=== PATIENT | female | born 1990 | race Native Hawaiian/Other Pacific Islander ===

== ENCOUNTER 2017-02-09 17:07 | Emergency (ER) | payer OTHER ==
[~2017-02-09] VITALS: Ht 162.6 cm; Wt 81.6 kg
[2017-02-09] MEDS ORDERED: INSUINJ20 SC (17:27)
[2017-02-09 17:29] LABS: PLATELET COUNT 312 K/uL (152-353)
[2017-02-09 17:41] LABS: POTASSIUM 3.7 mmol/L (3.6-5.2); SODIUM 140 mmol/L (136-145)
[2017-02-09 20:33] VITALS: BP 138/88; TEMP 98.2
== END 2017-02-09 20:34 | disposition home or self-care (01) ==
LOC: ED 17:07
DX: R10.13 Epigastric pain (principal); T50.995A Adverse effect of other drugs, medicaments and biological substances, initial encounter
CPT/HCPCS: 36415; 80053; 82150; 83690; 85027; 86318; 96374; 99284; J1100; Q9963

== ENCOUNTER 2017-02-10 16:27 | Outpatient (CLI) | payer OTHER ==
[~2017-02-10 16:27] MED LIST: INSUINJ20 SC
== END 2017-02-10 19:08 | disposition home or self-care (01) ==
LOC: US 16:27
DX: R10.11 Right upper quadrant pain (principal); R11.2 Nausea with vomiting, unspecified

== ENCOUNTER 2017-02-18 12:28 | Outpatient (CLI) | payer OTHER | END 2017-02-18 13:30 | disposition home or self-care (01) | LOC: NM 12:28 | DX: R10.11 Right upper quadrant pain (principal); R11.2 Nausea with vomiting, unspecified | CPT/HCPCS: A9537 ==

== ENCOUNTER 2017-03-09 08:16 | Day surgery (SDC) | payer OTHER ==
[2017-03-03 08:29] LABS: PLATELET COUNT 343 K/uL (152-353)
[2017-03-03 08:47] LABS: POTASSIUM 4.1 mmol/L (3.6-5.2); SODIUM 137 mmol/L (136-145)
[~2017-03-09] VITALS: Ht 30.5 cm; Wt 0.5 kg
== END 2017-03-09 12:42 | disposition home or self-care (01) ==
LOC: OR 08:16
PROVIDERS: Student in an Organized Health Care Education/Training Program
PROC: 0FT44ZZ Resection of Gallbladder, Percutaneous Endoscopic Approach (ICD-10-PCS; principal; 2017-03-09)
DX: K81.1 Chronic cholecystitis (principal); R10.11 Right upper quadrant pain
CPT/HCPCS: 36415; 80053; 85027; J0132; J0330; J0690; J1100; J1170; J2001; J2250; J2405; J2704; J2710; J2765; J3010; J3490; S0028

== ENCOUNTER 2017-06-02 10:44 | Outpatient (CLI) | payer OTHER ==
[2017-06-02 11:00] LABS: PLATELET COUNT 355 K/uL (152-353)
[2017-06-02 13:15] LABS: POTASSIUM 3.7 mmol/L (3.6-5.2); SODIUM 135 mmol/L (136-145)
== END 2017-06-02 11:45 | disposition home or self-care (01) ==
LOC: LABW 10:44
PROVIDERS: Family Medicine
DX: E11.9 Type 2 diabetes mellitus without complications (principal)
CPT/HCPCS: 36415; 80053; 80061; 81000; 83036; 84439; 84443; 85027

== ENCOUNTER 2017-07-08 17:14 | Emergency (ER) | payer OTHER ==
[~2017-07-08] VITALS: Ht 160 cm; Wt 95.3 kg
[2017-07-08 17:25] VITALS: BP 144/96; TEMP 98.5
== END 2017-07-08 18:30 | disposition home or self-care (01) ==
LOC: ED 17:14
DX: R51 Headache (principal); V89.2XXA Person injured in unspecified motor-vehicle accident, traffic, initial encounter
CPT/HCPCS: 99282

== ENCOUNTER 2018-01-19 06:12 | Emergency (ER) | payer OTHER ==
[~2018-01-19] VITALS: Ht 165.1 cm; Wt 88.5 kg
[2018-01-19 06:15] VITALS: TEMP 98.2
[2018-01-19 06:38] LABS: PLATELET COUNT 334 K/uL (152-353)
[2018-01-19 06:49] LABS: POTASSIUM 4.1 mmol/L (3.6-5.2)
[2018-01-19 10:10] VITALS: BP 121/72
== END 2018-01-19 10:10 | disposition home or self-care (01) ==
LOC: ED 06:12
DX: R10.31 Right lower quadrant pain (principal); N20.0 Calculus of kidney
CPT/HCPCS: 80053; 81000; 81025; 85027; 96361; 96374; 96375; 99284; J1815; J2175; J2405

== ENCOUNTER 2018-01-19 18:15 | Emergency (ER) | payer OTHER ==
[~2018-01-19] VITALS: Ht 165.1 cm; Wt 88.5 kg
[2018-01-19 18:20] VITALS: BP 153/96; TEMP 98.1
== END 2018-01-19 18:34 | disposition home or self-care (01) ==
LOC: ED 18:15
DX: N20.0 Calculus of kidney (principal)
CPT/HCPCS: 99281

== ENCOUNTER 2018-01-24 13:00 | Outpatient (CLI) | payer OTHER ==
[2018-01-24 13:34] LABS: PLATELET COUNT 354 K/uL (152-353)
[2018-01-24 14:03] LABS: POTASSIUM 3.9 mmol/L (3.6-5.2)
== END 2018-01-24 22:41 | disposition home or self-care (01) ==
LOC: LABW 13:00
PROVIDERS: Family Medicine
DX: R10.11 Right upper quadrant pain (principal)
CPT/HCPCS: 36415; 80053; 82150; 83690; 85027; 86318; Q9963

== ENCOUNTER 2018-05-14 15:33 | Emergency (ER) | payer OTHER ==
[~2018-05-14] VITALS: Ht 165.1 cm; Wt 86.2 kg
[2018-05-14 15:45] VITALS: BP 145/91; TEMP 98.9
== END 2018-05-14 16:08 | disposition home or self-care (01) ==
LOC: ED 15:33
PROC: 09C37ZZ Extirpation of Matter from Right External Auditory Canal, Via Natural or Artificial Opening (ICD-10-PCS; principal; 2018-05-14)
DX: T16.1XXA Foreign body in right ear, initial encounter (principal)
CPT/HCPCS: 99282

== ENCOUNTER 2018-08-11 12:41 | Emergency (ER) | payer OTHER ==
[~2018-08-11] VITALS: Ht 165.1 cm; Wt 83.9 kg
[2018-08-11 12:50] VITALS: TEMP 98.1
[2018-08-11] MEDS ORDERED: NOVOLIN N100 UNIT/2 SC (13:00)
[2018-08-11] MEDS ORDERED: SERT50TA PO (13:01)
[2018-08-11] MEDS ORDERED: TOPAMAX25 MG PO (13:01)
[2018-08-11 13:30] VITALS: BP 128/84
[2018-08-11 14:00] LABS: PLATELET COUNT 410 K/uL (152-353)
[2018-08-11 14:14] LABS: POTASSIUM 3.9 mmol/L (3.6-5.2)
== END 2018-08-11 14:50 | disposition home or self-care (01) ==
LOC: ED 12:41
DX: J06.9 Acute upper respiratory infection, unspecified (principal); E10.9 Type 1 diabetes mellitus without complications
CPT/HCPCS: 36415; 80053; 81000; 85027; 87502; 87651; 99283

== ENCOUNTER 2019-04-20 14:39 | Inpatient (IN) | payer OTHER ==
[~2019-04-20] VITALS: Ht 162.6 cm; Wt 92.5 kg
[2019-04-20] VITALS (8 sets, daily range): BP systolic 118–150; BP diastolic 75–96; TEMP 98–98.1; Ht 162.6 cm; Wt 92.5 kg
[~2019-04-20 14:39] MED LIST changes: +NOVOLIN N100 UNIT/2 SC; +SERT50TA PO; +TOPAMAX25 MG PO
[2019-04-20 15:54] LABS: PLATELET COUNT 316 K/uL (152-353)
[2019-04-20 15:58] LABS: POTASSIUM 3.8 mmol/L (3.6-5.2)
[2019-04-21 04:00] VITALS: BP 127/72; TEMP 97.6
[2019-04-21 07:54] VITALS: BP 122/73; TEMP 97.6
[2019-04-21 20:00] VITALS: BP 122/74; TEMP 98
[2019-04-21 23:56] VITALS: BP 130/76; TEMP 97.8
[2019-04-22 04:00] VITALS: BP 127/79; TEMP 97.4
[2019-04-22 05:38] LABS: POTASSIUM 4.1 mmol/L (3.6-5.2)
[2019-04-22 08:00] VITALS: BP 137/81; TEMP 97.9
[2019-04-22 16:00] VITALS: BP 159/91; TEMP 98.1
[2019-04-22 20:00] VITALS: BP 144/84; TEMP 98.1
[2019-04-23 00:26] VITALS: BP 142/87; TEMP 97.6
[2019-04-23 04:00] VITALS: BP 138/85; TEMP 97.9
[2019-04-23 05:21] LABS: POTASSIUM 3.9 mmol/L (3.6-5.2)
[2019-04-23 08:00] VITALS: BP 152/85; TEMP 97.6
== END 2019-04-23 09:30 | disposition home or self-care (01) | DRG 440 ==
LOC: ED 14:39 → MED/SURG 19:00
PROVIDERS: Family Medicine; ADMIT Emergency Medicine
DX: K85.90 Acute pancreatitis without necrosis or infection, unspecified (principal); R10.31 Right lower quadrant pain; K85.80 Other acute pancreatitis without necrosis or infection; E11.65 Type 2 diabetes mellitus with hyperglycemia; Z91.14 Patient's other noncompliance with medication regimen; F32.89 Other specified depressive episodes; E66.8 Other obesity
CPT/HCPCS: 36415; 80053; 81000; 81002; 81025; 82150; 83036; 83690; 85027; 96360; 96366; 96374; 96375; 99220; 99284; G0378; J1815; J1885; J2175; J2405

== ENCOUNTER 2019-04-20 16:53 | Outpatient (CLI) | payer OTHER | END 2019-04-20 17:21 | disposition short-term general hospital (02) | LOC: AMB 16:53 | DX: R10.9 Unspecified abdominal pain (principal) | CPT/HCPCS: A0425; A0426 ==

== ENCOUNTER 2019-10-09 12:07 | Outpatient (CLI) | payer OTHER | END 2019-10-09 19:19 | disposition home or self-care (01) | LOC: MAMMO 12:07 | DX: N64.4 Mastodynia (principal) | CPT/HCPCS: G0279 ==

== ENCOUNTER 2019-11-01 18:00 | Emergency (ER) | payer OTHER ==
[~2019-11-01] VITALS: Ht 162.6 cm; Wt 90.7 kg
[2019-11-01 19:24] LABS: POTASSIUM 3.8 mmol/L (3.6-5.2); SODIUM 137 mmol/L (136-145)
[2019-11-01 19:26] LABS: PLATELET COUNT 343 K/uL (152-353)
[2019-11-01 20:35] VITALS: BP 148/85; TEMP 98.6
== END 2019-11-01 20:35 | disposition home or self-care (01) ==
LOC: ED 18:00
PROVIDERS: Emergency Medicine
DX: J06.9 Acute upper respiratory infection, unspecified (principal); J40 Bronchitis, not specified as acute or chronic; J45.909 Unspecified asthma, uncomplicated
CPT/HCPCS: 36415; 80053; 82550; 82553; 84484; 85027; 87502; 87651; 93005; 94664; 99283

== ENCOUNTER 2019-11-13 11:05 | Outpatient (CLI) | payer OTHER | END 2019-11-13 19:16 | disposition home or self-care (01) | LOC: RAD 11:05 | DX: J20.8 Acute bronchitis due to other specified organisms (principal) ==

== ENCOUNTER 2020-04-02 10:56 | Outpatient (CLI) | payer OTHER ==
[2020-04-02 11:20] LABS: PLATELET COUNT 357 K/uL (152-353)
[2020-04-02 11:28] LABS: POTASSIUM 4.2 mmol/L (3.6-5.2)
== END 2020-04-02 20:20 | disposition home or self-care (01) ==
LOC: LABW 10:56
PROVIDERS: Nurse Practitioner Family
DX: K85.80 Other acute pancreatitis without necrosis or infection (principal)
CPT/HCPCS: 36415; 80053; 82150; 83690; 85027

== ENCOUNTER 2020-04-02 15:46 | Outpatient (CLI) | payer OTHER | END 2020-04-02 20:35 | disposition home or self-care (01) | LOC: RAD 15:46 | DX: K85.80 Other acute pancreatitis without necrosis or infection (principal) | CPT/HCPCS: Q9963 ==

== ENCOUNTER 2021-03-18 14:12 | Outpatient (CLI) | payer OTHER | END 2021-03-18 22:42 | disposition home or self-care (01) | LOC: RAD 14:12 | PROVIDERS: ATTEND Nurse Practitioner Family | DX: Z03.89 Encounter for observation for other suspected diseases and conditions ruled out (principal) ==

== ENCOUNTER 2021-03-20 08:10 | Outpatient (CLI) | payer OTHER ==
[~2021-03-20] VITALS: Ht 160 cm; Wt 99.8 kg
== END 2021-03-20 11:46 | disposition home or self-care (01) ==
LOC: INF 08:10
PROVIDERS: ATTEND Family Medicine
DX: Z23 Encounter for immunization (principal); Z03.89 Encounter for observation for other suspected diseases and conditions ruled out; U07.1 COVID-19
CPT/HCPCS: 96365; M0244

== ENCOUNTER 2021-11-02 12:58 | Emergency (ER) | payer OTHER ==
[~2021-11-02] VITALS: Ht 160 cm; Wt 95.3 kg
[2021-11-02 13:08] VITALS: TEMP 99
[2021-11-02 13:27] LABS: PLATELET COUNT 362 K/uL (152-353)
[2021-11-02 13:37] LABS: POTASSIUM 4.1 mmol/L (3.6-5.2)
[2021-11-02 14:45] VITALS: BP 155/86
== END 2021-11-02 15:30 | disposition home or self-care (01) ==
LOC: ED 12:58
PROVIDERS: Emergency Medicine
DX: R10.13 Epigastric pain (principal)
CPT/HCPCS: 36415; 80053; 81000; 81025; 83690; 85027; 96360; 96375; 99284; J2270; J2405; J3490; Q9963

== ENCOUNTER 2022-07-21 16:04 | Outpatient (CLI) | payer OTHER ==
[2022-07-21 16:30] LABS: POTASSIUM 4.4 mmol/L (3.6-5.2)
== END 2022-07-21 19:21 | disposition home or self-care (01) ==
LOC: LABW 16:04 → CT 16:04 → LABW 19:21
PROVIDERS: ATTEND Nurse Practitioner Primary Care
DX: R10.11 Right upper quadrant pain (principal)
CPT/HCPCS: 36415; 80053; 82150; 82565; 83690; Q9963

== ENCOUNTER 2022-12-28 10:23 | Emergency (ER) | payer OTHER ==
[~2022-12-28] VITALS: Ht 160 cm; Wt 102.1 kg
[2022-12-28 10:30] VITALS: BP 141/86; TEMP 98.8
[2022-12-28 11:01] LABS: PLATELET COUNT 347 K/uL (152-353)
[2022-12-28 11:15] LABS: SODIUM 139 mmol/L (136-145)
[2022-12-29] MEDS ORDERED: acetaminophen PO (19:28)
[2022-12-29] MEDS ORDERED: IBUP-97 PO (19:29)
[2022-12-29] MEDS ORDERED: NOVOLIN N100 UNIT/2 IM (19:29)
[2022-12-29] MEDS ORDERED: FLUOXETINE40 MG PO (19:30)
[2022-12-29] MEDS ORDERED: NOVOLIN R100 UNIT/1 IM (19:30)
[2022-12-29] MEDS ORDERED: REMERON30 MG PO (19:31)
[2022-12-29] MEDS ORDERED: TRAZ50TA36 PO (19:31)
[2022-12-29] MEDS ORDERED: EMGALITY120 MG/M1 SC (19:32)
[2022-12-29] MEDS ORDERED: UBRELVY100 MG PO (19:32)
[2022-12-29] MEDS ORDERED: TOPAMAX50 MG PO (19:33)
[2022-12-29] MEDS ORDERED: LISI10TA11 PO (19:33)
== END 2022-12-28 12:33 | disposition home or self-care (01) ==
LOC: ED 10:23
PROVIDERS: Emergency Medicine Emergency Medical Services
DX: R09.1 Pleurisy (principal); R00.2 Palpitations; F10.90 Alcohol use, unspecified, uncomplicated
CPT/HCPCS: 36415; 80053; 81025; 83735; 84484; 85027; 85379; 85610; 93005; 96361; 96374; 99284; J1885

== ENCOUNTER 2022-12-29 16:50 | Observation (INO) | payer OTHER ==
[~2022-12-29] VITALS: Ht 167.6 cm; Wt 103.2 kg
[2022-12-29 18:50] LABS: PLATELET COUNT 343 K/uL (152-353)
[2022-12-29 19:12] LABS: POTASSIUM 4.2 mmol/L (3.6-5.2); SODIUM 140 mmol/L (136-145)
[2022-12-29] MEDS ORDERED: acetaminophen PO (19:28)
[2022-12-29] MEDS ORDERED: NOVOLIN N100 UNIT/2 IM (19:29)
[2022-12-29] MEDS ORDERED: IBUP-97 PO (19:29)
[2022-12-29] MEDS ORDERED: FLUOXETINE40 MG PO (19:30)
[2022-12-29] MEDS ORDERED: NOVOLIN R100 UNIT/1 IM (19:30)
[2022-12-29] MEDS ORDERED: REMERON30 MG PO (19:31)
[2022-12-29] MEDS ORDERED: TRAZ50TA36 PO (19:31)
[2022-12-29] MEDS ORDERED: EMGALITY120 MG/M1 SC (19:32)
[2022-12-29] MEDS ORDERED: UBRELVY100 MG PO (19:32)
[2022-12-29] MEDS ORDERED: TOPAMAX50 MG PO (19:33)
[2022-12-29] MEDS ORDERED: LISI10TA11 PO (19:33)
[2022-12-29 19:39] LABS: PARTIAL THROMBOPLASTIN TIME 26.6 SECONDS (23.9-36.7)
[2022-12-29 20:00] VITALS: BP 147/82; TEMP 98.5
[2022-12-29 21:13] VITALS: BP 149/93; TEMP 98.7; Ht 167.6 cm; Wt 103.2 kg
[2022-12-29 23:53] VITALS: BP 113/47; TEMP 98.4
[2022-12-30] VITALS: BP 113/47; TEMP 98.4
[2022-12-30 04:00] VITALS: BP 108/60; TEMP 98.1
[2022-12-30 07:38] VITALS: BP 100/62; TEMP 98.6
[2022-12-30 11:34] VITALS: BP 126/78; TEMP 98.7
== END 2022-12-30 17:25 | disposition home or self-care (01) ==
LOC: MED/SURG 16:50
PROVIDERS: ADMIT Family Medicine; ATTEND Family Medicine
DX: R07.89 Other chest pain (principal); R00.2 Palpitations; R42 Dizziness and giddiness
CPT/HCPCS: 36415; 80053; 82550; 84484; 85027; 85610; 85730; 93005; 96360; 96361; 96372; 99220; 99221; G0378; G0379; J1650; J2270

== ENCOUNTER 2023-01-19 07:47 | Outpatient (CLI) | payer OTHER ==
[~2023-01-19 07:47] MED LIST changes: +EMGALITY120 MG/M1 SC; +FLUOXETINE40 MG PO; +IBUP-97 PO; +LISI10TA11 PO; +NOVOLIN N100 UNIT/2 IM; +NOVOLIN R100 UNIT/1 IM; +REMERON30 MG PO; +TOPAMAX50 MG PO; +TRAZ50TA36 PO; +UBRELVY100 MG PO; +acetaminophen PO
== END 2023-01-19 18:53 | disposition home or self-care (01) ==
LOC: NM 07:47
PROVIDERS: ATTEND Family Medicine
DX: R07.89 Other chest pain (principal)
CPT/HCPCS: A9500

== ENCOUNTER 2023-09-23 06:58 | Emergency (ER) | payer OTHER ==
[~2023-09-23] VITALS: Ht 167.6 cm; Wt 101.2 kg
[2023-09-23 07:03] VITALS: TEMP 98.2
[2023-09-23] MEDS ORDERED: Ondansetron HCl 4 MG INJ INJ ONE (07:36)
[2023-09-23 07:50] LABS: PLATELET COUNT 376 K/uL (152-353)
[2023-09-23] MEDS ORDERED: SODIUM CHLORIDE 0.9% 1,000 ML IV ONE ×2 (08:15→08:22)
[2023-09-23] MEDS ORDERED: TORADOL 30MG/ML INJ INJ ONE (09:55)
[2023-09-23] MEDS ORDERED: TAMSULOSIN HYDROCHLORIDE 0.4 MG CAP PO ONE ×2 (09:55→10:05)
[2023-09-23 10:05] VITALS: BP 138/80
[2023-09-23] MEDS ORDERED: TORADOL 30MG/ML INJ ONE (10:06)
== END 2023-09-23 10:40 | disposition home or self-care (01) ==
LOC: ED 06:58
PROVIDERS: Internal Medicine Endocrinology, Diabetes & Metabolism
DX: N20.0 Calculus of kidney (principal); R10.9 Unspecified abdominal pain
CPT/HCPCS: 36415; 80053; 81000; 81025; 83690; 85027; 96361; 96374; 96375; 99284; J1885; J2405